=== PATIENT | female | born 1980 | race Caucasian/White ===

== ENCOUNTER → 2017-09-02 | Outpatient (CLI) | payer OTHER ==
[~2017-09-02] MED LIST: AMOX-559 PO; AMOX875T60 PO; BCP; BUPR-126 PO; CLO10 MT; FLU150 PO; FLUT16SP19 NS; IBU800 PO; LOR5/325 PO; METH4TAB66 PO; NALT1TAB PO; PHEN-580 PO; PHEN15CA69 PO; PREN-67 PO; SIMV10TA98 PO; SUMA50TA34 PO; TRIA5PAS12 DT
== END ==
LOC: LAB 08:03
PROVIDERS: ATTEND Nurse Practitioner Primary Care
DX: E55.9 Vitamin D deficiency, unspecified (principal)
CPT/HCPCS: 82306

== ENCOUNTER → 2017-09-02 | Outpatient (REF) ==
[2017-09-02 10:30] LABS: LDL CHOLESTEROL 129 mg/dl
== END ==
DX: Z02.9 Encounter for administrative examinations, unspecified (principal)

== ENCOUNTER → 2017-10-12 | Outpatient (CLI) | payer OTHER | LOC: LAB 09:40 | PROVIDERS: ATTEND Nurse Practitioner Primary Care | DX: E78.00 Pure hypercholesterolemia, unspecified (principal) | CPT/HCPCS: 36415; 82040; 82247; 82310; 82374; 82435; 82565; 82947; 84075; 84132; 84155; 84295; 84450; 84460; 84520 ==

== ENCOUNTER → 2018-02-09 | Outpatient (CLI) | payer OTHER ==
[2018-02-09 08:59] LABS: LDL CHOLESTEROL 108 mg/dl
== END ==
LOC: LAB 08:17
PROVIDERS: ATTEND Nurse Practitioner Primary Care
DX: E78.00 Pure hypercholesterolemia, unspecified (principal); E55.9 Vitamin D deficiency, unspecified
CPT/HCPCS: 36415; 82040; 82247; 82306; 82310; 82374; 82435; 82465; 82565; 82947; 83718; 84075; 84132; 84155; 84295; 84450; 84460; 84478; 84520

== ENCOUNTER → 2018-11-10 | Outpatient (REF) ==
[~2018-11-10] MED LIST changes: +OSE75 PO
[2018-11-10 08:33] LABS: LDL CHOLESTEROL 101 mg/dl
== END ==
DX: Z02.9 Encounter for administrative examinations, unspecified (principal)

== ENCOUNTER → 2018-12-03 | Outpatient (CLI) | payer OTHER ==
--- NOTE | 2018-12-06 13:48 | RADIOLOGY IMAGING REPORT ---
FACILITY: [facility] PATIENT NAME: MARQUES JASMINE : [id number] MR: [id number] V: [id number] EXAM DATE: [id number] ORDERING PHYSICIAN: BRENDA RUTLEDGE TECHNOLOGIST: Constanza Silva PROCEDURE: BILATERAL DIGITAL SCREENING MAMMOGRAM WITH CAD ASSISTED INTERPRETATION & 3D TOMOSYNTHESIS REASON FOR STUDY: Screening. COMPARISON: None. VIEWS OBTAINED: 2D & 3D full field CC & MLO. BREAST DENSITY: There are scattered areas of fibroglandular density. MAMMOGRAM FINDINGS: There is no suspicious mass or calcification. IMPRESSION: BIRADS 1: Negative. DIAGNOSTIC CATEGORY 1--NEGATIVE. RECOMMENDATIONS: ROUTINE MAMMOGRAM AND CLINICAL EVALUATION. Dictated by: Chris Sandhu M.D. on 12/06/2018 at 8:28 Transcribed by: LYNDA on 12/06/2018 at 9:25 Approved by: Chris Sandhu M.D. on 12/06/2018 at 13:46 [facility]
== END ==
LOC: MAMO 01:41
PROVIDERS: ATTEND Nurse Practitioner Family
DX: Z12.31 Encounter for screening mammogram for malignant neoplasm of breast (principal)
CPT/HCPCS: 77063; 77067

== ENCOUNTER → 2018-12-15 | Outpatient (CLI) | payer OTHER ==
[~2018-12-15] MED LIST changes: +OMEP-126 PO
--- NOTE | 2018-12-15 11:53 | RADIOLOGY IMAGING REPORT ---
FACILITY: [facility] PATIENT NAME: Vanesa Light : 1980 MR: [id number] V: [id number] EXAM DATE: ORDERING PHYSICIAN: ZAN PANDYA TECHNOLOGIST: Location: [facility] [place] Patient: Vanesa Light : 1980 Visit/Account:[id number] Date of Sevice: 12/15/2018 EXAMINATION: Single supine abdomen HISTORY: Abdominal pain and constipation COMPARISON: None. FINDINGS: Overall nonobstructive bowel gas pattern without overt fecal burden. No unexpected mass e ffect. Radiodensity projects lateral to the right L4 transverse process. There is an intrauterine d evice. Lung bases are clear. Cholecystectomy. IMPRESSION: No overt fecal burden, small amount of fecal material noted in the rectum however no rad iographically significant findings for constipation. Radiodensity projecting in the possible location of the distal right ureter, correlate with right fla nk pain. Report Dictated By: Nicolas Tierney MD at 12/15/2018 11:46 AM Report E-Signed By: Nicolas Tierney MD at 12/15/2018 11:47 AM WSN:[id number]
== END ==
LOC: RAD 11:08
PROVIDERS: ATTEND Nurse Practitioner Primary Care
DX: K59.00 Constipation, unspecified (principal)
CPT/HCPCS: 74018